=== PATIENT | female | born 1945 | race Caucasian/White ===

== ENCOUNTER 2018-03-20 08:25 | Outpatient (RCR) | payer OTHER, SELFPAY ==
--- NOTE | 2018-03-20 12:54 | PT.OIE ---
Current Diagnoses Other enthesopathies, not elsewhere classified (03/20/18) Provider Visit Care Team Role Provider Type LEIF Prajapati Family Provider Non-Staff Primary Care Provider Specialty: Medical Address: [address] [place] [address], [id number] Email: Lenard Bernal Attending Provider Non-Staff Specialty: Medical Address: [address] [place] [address], [id number] Email: Physical Therapy Initial Evaluation PT-OP-A Visit Information Start: 03/20/18 12:34 Freq: Status: Active Protocol: Document 03/20/18 09:00 DCW (Rec: 03/20/18 12:54 [facility] [id number]) Out-Patient Physical Therapy Visit Information Visit Information Visit Type Initial Evaluation Visit Start Time 09:00 Visit Stop Time 09:30 Total Visit Minutes 30 Visit Number 1 Number of HEARING IMPAIRED TEACHER Visits 0 Evaluation Information Evaluation Date 03/20/18 PT-OP-B Current Condition Start: 03/20/18 12:34 Freq: Status: Active Protocol: Document 03/20/18 09:00 DCW (Rec: 03/20/18 12:54 [facility] [id number]) Current Condition History of Current Condition Onset Date s/p one year Current Complaints Medial Elbow pain History of Current Condition Pt is a 72 year old female presenting with a one year history of medial right elbow pain. Pt reports she had been experiencing 9-10/10 pain right at her medial epicondyle , really with any use of her right arm, including scrubbing pans or lifting objects. Pt now notes, however, that she has been noticing improvement over the past three week, to the point where is often has no pain, and even things that used to give her a 10/10 pain are now at worst a 4/10. Today , pt has no real complaints. Prior Functional Status Baseline Function- ADL's Independent Baseline Function- Mobility Independent Current Functional Impairments (Reported) Functional Limitations- Recreation/ Was limited due to pain, but Hobbies currently she is able to work through it when her elbow hurts when scrubbing pans, lifting objects, or gardening. PT-OP-C Subjective Start: 03/20/18 12:34 Freq: Status: Active Protocol: Document 03/20/18 09:00 DCW (Rec: 03/20/18 12:54 [facility] [id number]) Patient Questionnaires Quick Dash- Upper Extremity Quick Dash UE Score 4.55 Quick Dash UE Impairment 1 to 19% Impaired (Score 1-19) OP-PT Pain Assessment Pain Assessment Grid Paper Pain Assessment Grid Completed Yes Location Right Elbow Intensity 2 Scale Used Numeric (1 - 10) Description Aching Frequency Occasional Pain Aggravating Factors ADL's Lifting PT-OP-F Manual Assessment Start: 03/20/18 12:34 Freq: Status: Active Protocol: Document 03/20/18 09:00 DCW (Rec: 03/20/18 12:54 DCW [id number]) Manual Assessments Soft Tissue Assessment Soft Tissue Mobility Assessment Mild complaint of tenderness with palpation, 1/5, at the origin of the right common flexor tendon PT-OP-K Range of Motion Start: 03/20/18 12:34 Freq: Status: Active Protocol: Document 03/20/18 09:00 DCW (Rec: 03/20/18 12:54 [facility] [id number]) Elbow/Forearm Range of Motion Elbow/Forearm Measured in Degrees Right Active Elbow/Forearm ROM WFL Yes ROM Testing Position Sitting PT-OP-M Strength Start: 03/20/18 12:34 Freq: Status: Active Protocol: Document 03/20/18 09:00 DCW (Rec: 03/20/18 12:54 DC [id number]) Elbow/Forearm Strength Elbow and Forearm Manual Muscle Testing Right Flexion (C6) 5 Normal Extension (C7) 5 Normal Pronation 5 Normal Supination 5 Normal Wrist Strength Wrist Manual Muscle Testing Right Flexion (C7) 5 Normal Extension (C6) 5 Normal Ulnar Deviation 5 Normal Radial Deviation 5 Normal PT-OP-Q Treatments Start: 03/20/18 12:34 Freq: Status: Active Protocol: Document 03/20/18 09:00 DCW (Rec: 03/20/18 12:54 DCW [id number]) Therapeutic Exercises Sitting Exercises 2 Sitting Exercise Name Forearm Pronation/Supination Side right Equipment Used Hammer 1 Sitting Exercise Name 4-way wrist flexion Side right Resistance Lv 2 Equipment Used T-band Reps/Minutes 3 PT-OP-T Assessment and Plan Start: 03/20/18 12:34 Freq: Status: Active Protocol: Document 03/20/18 09:00 HALIE (Rec: 03/20/18 12:54 DCW [id number]) Physical Therapy Assessment Rehab Potential Rehabilitation Potential Excellent Evaluation Complexity Number of Personal Factors/Comorbidities 0 Number of Body Systems Impaired 1-2 Clinical Presentation at Evaluation Stable Impairments Impairments Pain Goals Two Impairment Activity Limitation Short Term Goal (STG) Pt to report ability to scrub [place] with no increased pain STG Duration 3 weeks One Impairment Pain Short Term Goal (STG) Pt to report 0/10 pain at right medial elbow with all activities STG Duration 3 weeks Assessment Summary Assessment Pt presents with signs and symptoms of right medial epicondylitis, however she currently exhibits few symptoms, and those that she does have are very mild. If her symptoms persist, she may benefit from forearm and wrist strengthening, STM to the common flexor tendon, Taping, Ultrasound, and Iontophoresis with Dexamethasone. At this time, however, pt may not require any further therapeutic intervention. Discussed plan with patient, and she agrees that if she continues to have no pain or increased symptoms over the next week, she will cancel her next appointment, and if, after two weeks, she still have no worsening, she will call and request discharge. Physical Therapy Plan Frequency and Duration Frequency of Treatment 1x/Week Duration of Treatment 6 weeks Plan of Care Start Date 03/20/18 Plan of Care End Date 04/30/18 Therapeutic Interventions Therapeutic Interventions Home Exercise Program Joint Mobilizations Manual Therapy Soft Tissue Mobilization Therapeutic Exercises Modalities Cold Pack/Ice Massage Electric Stimulation Hot Packs Iontophoresis Ultrasound Other Therapeutic Interventions Dexamethasone for Ionto Next Visit Focus/Plan Next Visit Plan Cross friction massage of Common Flexor tendon, Iontophoresis, Ultrasound, strengthening, flexibility, and kinesio-taping. Provider Signature Date
--- NOTE | 2018-03-20 12:55 | PT.OPPOC ---
Current Diagnoses Other enthesopathies, not elsewhere classified (03/20/18) Provider Visit Care Team Role Provider Type LEIF Prajapati Family Provider Non-Staff Primary Care Provider Specialty: Medical Address: [address] [place] [address], [id number] Email: Lenard Bernal Attending Provider Non-Staff Specialty: Medical Address: [address] [place] [address], [id number] Email: Plan Of Care PT-OP-T Assessment and Plan Start: 03/20/18 12:34 Freq: Status: Active Protocol: Document 03/20/18 09:00 DCW (Rec: 03/20/18 12:54 DCW [id number]) Physical Therapy Assessment Rehab Potential Rehabilitation Potential Excellent Evaluation Complexity Number of Personal Factors/Comorbidities 0 Number of Body Systems Impaired 1-2 Clinical Presentation at Evaluation Stable Impairments Impairments Pain Goals Two Impairment Activity Limitation Short Term Goal (STG) Pt to report ability to scrub [place] with no increased pain STG Duration 3 weeks One Impairment Pain Short Term Goal (STG) Pt to report 0/10 pain at right medial elbow with all activities STG Duration 3 weeks Assessment Summary Assessment Pt presents with signs and symptoms of right medial epicondylitis, however she currently exhibits few symptoms, and those that she does have are very mild. If her symptoms persist, she may benefit from forearm and wrist strengthening, STM to the common flexor tendon, Taping, Ultrasound, and Iontophoresis with Dexamethasone. At this time, however, pt may not require any further therapeutic intervention. Discussed plan with patient, and she agrees that if she continues to have no pain or increased symptoms over the next week, she will cancel her next appointment, and if, after two weeks, she still have no worsening, she will call and request discharge. Physical Therapy Plan Frequency and Duration Frequency of Treatment 1x/Week Duration of Treatment 6 weeks Plan of Care Start Date 03/20/18 Plan of Care End Date 04/30/18 Therapeutic Interventions Therapeutic Interventions Home Exercise Program Joint Mobilizations Manual Therapy Soft Tissue Mobilization Therapeutic Exercises Modalities Cold Pack/Ice Massage Electric Stimulation Hot Packs Iontophoresis Ultrasound Other Therapeutic Interventions Dexamethasone for Ionto Next Visit Focus/Plan Next Visit Plan Cross friction massage of Common Flexor tendon, Iontophoresis, Ultrasound, strengthening, flexibility, and kinesio-taping. Plan of Care Dates Plan of Care Start Date 03/20/18 Plan of Care End Date 04/30/18 Please Sign and Return: I have reviewed this Plan of Care and certify that the skilled therapy services above are required to meet the patient???s needs. Physician Signature Date Printed Name and Credentials
--- NOTE | 2018-03-31 11:03 | PT.OPDS ---
Current Diagnoses Other enthesopathies, not elsewhere classified (03/20/18) Provider Visit Care Team Role Provider Type LEIF Prajapati Family Provider Non-Staff Primary Care Provider Specialty: Medical Address: [address] [place] [address], [id number] Email: Lenard Bernal Attending Provider Non-Staff Specialty: Medical Address: [address] [place] [address], [id number] Email: Discharge Summary PT-OP-B Current Condition Start: 03/20/18 12:34 Freq: Status: Active Protocol: Document 03/20/18 09:00 DCW (Rec: 03/20/18 12:54 DCW [id number]) Current Condition History of Current Condition Onset Date s/p one year Current Complaints Medial Elbow pain History of Current Condition Pt is a 72 year old female presenting with a one year history of medial right elbow pain. Pt reports she had been experiencing 9-10/10 pain right at her medial epicondyle, really with any use of her right arm, including scrubbing pans or lifting objects. Pt now notes, however, that she has been noticing improvement over the past three week, to the point where is often has no pain, and even things that used to give her a 10/10 pain are now at worst a 4/10. Today, pt has no real complaints. Prior Functional Status Baseline Function- ADL's Independent Baseline Function- Mobility Independent Current Functional Impairments (Reported) Functional Limitations- Recreation/ Was limited due to pain, but Hobbies currently she is able to work through it when her elbow hurts when scrubbing pans, lifting objects, or gardening. PT-OP-C Subjective Start: 03/20/18 12:34 Freq: Status: Active Protocol: Document 03/31/18 10:57 DCW (Rec: 03/31/18 11:03 DCW [id number]) OP-PT Subjective Patient Comments Patient Comments Pt phoned the clinic today to report she was doing better, will continue with her HEP, and to please cancel all remaining appointments. PT-OP-F Manual Assessment Start: 03/20/18 12:34 Freq: Status: Active Protocol: Document 03/20/18 09:00 DCFarhan (Rec: 03/20/18 12:54 [facility] [id number]) Manual Assessments Soft Tissue Assessment Soft Tissue Mobility Assessment Mild complaint of tenderness with palpation, /, at the origin of the right common flexor tendon PT-OP-T Assessment and Plan Start: 03/20/18 12:34 Freq: Status: Active Protocol: Document 03/31/18 10:57 DCW (Rec: 03/31/18 11:03 SCW [id number]) Physical Therapy Assessment Progress Towards Goals Progress Comments Per patient phone call, all goals are met, she has not been experiencing any symptoms. Physical Therapy Plan Discharge Physical Therapy Discharge Reasons Patient Request Discharge Comments Discharge from skilled therapy, per patient's phone call. Please Sign and Return: I have reviewed this Plan of Care and certify that the skilled therapy services above are required to meet the patient???s needs. Physician Signature Date Printed Name and Credentials Clinical Instructor Signature Printed Name and Credentials
== END 2018-04-09 16:41 ==
LOC: PHYS 08:25
PROVIDERS: Family Provider Nurse Practitioner Family; PCP Nurse Practitioner Family; Visit Provider Denturist
DX: M77.8 Other enthesopathies, not elsewhere classified (principal)
CPT/HCPCS: 97161

== ENCOUNTER → 2019-04-01 08:24 | Outpatient (CLI) | payer OTHER, SELFPAY ==
--- NOTE | 2019-04-01 | DI.CT.S_ITS ---
PROCEDURE: CT UE LT WO CON INDICATIONS: MASS IN LEFT BICEP TECHNIQUE: Noncontrast 3 mm axial sections acquired of the left humerus, with coronal and sagittal reformats. COMPARISON: None. FINDINGS: Image quality: Excellent. Bones: No fracture or focal osseous destruction. There is mild left glenohumeral and AC joint degeneration. Soft tissues: In the area of palpable abnormality marked by the fiducial marker on the skin surface, there is underlying possible lipoma with minimal encapsulated appearance measuring 1.1 x 1.5 cm on axial image 155 series 3 this measures approximately 2 cm the cephalocaudad dimension on sagittal image 47 series 5. Elsewhere, no discrete mass lesion is seen. Normal appearance of the muscles and subcutaneous fat. Surgical clips present in the left breast. No axillary lymphadenopathy identified. IMPRESSION: Possible minimally encapsulated lipoma in the region of the palpable abnormality. Recommend clinical followup and management. If subsequent surveillance imaging is deemed required based on level of clinical suspicion, consider followup with contrast-enhanced MRI. Dictated by: J Luis Rabago M.D. on 04/01/2019 at 8:44 Approved by: J Luis Rabago M.D. on 04/01/2019 at 8:50
== END ==
PROVIDERS: PCP Nurse Practitioner Family; Visit Provider Nurse Practitioner Family
DX: R22.32 Localized swelling, mass and lump, left upper limb (principal)
CPT/HCPCS: 73200

== ENCOUNTER → 2021-02-26 14:29 | Outpatient (CLI) | payer MEDICARE, SELFPAY | PROVIDERS: PCP Nurse Practitioner Family; Referring Provider Nurse Practitioner Family; Visit Provider Nurse Practitioner Family | DX: M85.851 Other specified disorders of bone density and structure, right thigh (principal); Z78.0 Asymptomatic menopausal state; Z85.3 Personal history of malignant neoplasm of breast | CPT/HCPCS: 77080 ==

== ENCOUNTER 2024-09-23 05:57 | Day surgery (SDC) | payer MEDICARE, SELFPAY ==
[2024-09-20 13:49] VITALS: BMI 25.0
[2024-09-23] VITALS (14 sets, daily range): BP systolic 77–156; BP diastolic 48–91; PULSE 45–92; RESP 12–16; TEMP 36.1–36.9; O2SAT 4–99; BMI 25.0
--- NOTE | 2024-09-23 | DI.RAD.S_ITS ---
PROCEDURE: XR PELVIS 1-2V INDICATIONS: INTEROP TECHNIQUE: Fluoroscopic guidance utilized for a left total hip arthroplasty COMPARISON: None. FINDINGS: Fluoroscopic images submitted for a left total hip arthroplasty. Please see operative note for further discussion. IMPRESSION: Fluoroscopic guidance. Dictated by: Job Antoine M.D. on 09/23/2024 at 11:26 Approved by: Job Antoine M.D. on 09/23/2024 at 11:26
--- NOTE | 2024-09-23 06:38 | DI.RAD.S_ITS ---
PROCEDURE: XR HIP W PEL IF DONE LT 2V INDICATIONS: DELMI TECHNIQUE: 2 view(s) of the hip acquired. COMPARISON: [facility], [place], XR PELVIS 1-2V, 09/23/2024, 9:09. FINDINGS: Bones: Patient is status post left hip arthroplasty, with hardware components in expected positions. The hip joint appears congruent. The visualized bony structures appear intact. Soft tissues: Overlying postoperative changes are noted. No suspicious soft tissue densities. IMPRESSION: Expected post-operative appearance of a hip arthroplasty. Dictated by: Keagan Bradford M.D. on 09/23/2024 at 14:32 Approved by: Keagan Bradford M.D. on 09/23/2024 at 14:34
[2024-09-23] MEDS: VANCOMYCIN 1,000 MG/200 ML PIGGYBACK 200 MG IV (07:06)
[2024-09-23] MEDS: ACETAMINOPHEN 325 MG TABLET 975 MG PO (07:06)
[2024-09-23] MEDS: CELECOXIB 200 MG CAPSULE PO (07:06)
[2024-09-23] MEDS: LACTATED RINGERS 1,000 ML 42 ML IV (07:07)
--- NOTE | 2024-09-23 07:27 | PM.PREOP ---
Pre-operative Note Interval Note History & Physical reviewed/Exam performed by Physician: Yes Changes to H&P: No
--- NOTE | 2024-09-23 07:28 | PM.OP.1 ---
Operative Date/Time/Diagnoses Date of procedure: 09/23/24 Time of procedure: 08:00 Pre-op diagnosis: left hip OA Post-op diagnosis: same Procedure & Clinicians Procedure: Left total hip arthroplasty anterior approach Same procedure as scheduled: Yes Indications: The patient has had progressively worsening left hip pain with radiographic changes consistent with arthritis. Non-operative management has failed and the patient has requested total hip replacement. The risks, benefits and alternatives to surgery were discussed with the patient prior to proceeding. Risks discussed included, but were not limited to, failure to relieve pain, leg length discrepancy, dislocation, stiffness, infection, nerve damage, deep venous thrombosis, pulmonary embolism, stroke, coma, heart attack, permanent paralysis and , as well as the potential need for eventual revision of the prosthetic. Surgeon: Annetta Clark Education Officer: Raúl Cook Anesthesia Type: General and Spinal Operative Notes Findings: Severe left hip OA , adequate stability, adequate bone Closure Type: primary Specimen(s): none sent Prosthetic devices, grafts, tissues, transplants, or devices: [employer] R3 52, neutral poly liner,one 6.5 mm screw, polar stem size 1 Estimated Blood Loss (mL): 250 Blood products transfused: none Procedure in detail: The patient was brought to the operating room. Patient was carefully positioned in the supine position. Time-out was performed and antibiotics were given. Anesthesia was induced. She was positioned in the on the table in order to allow hyperextension of the hip. The left lower extremity was prepped and draped in a standard sterile fashion. An anterior left hip incision was made 1 fingerbreadth lateral to the anterior superior iliac spine and extended distally towards the greater trochanter. Dissection was carried out through skin and subcutaneous tissues. Superficial hemostasis was achieved. The fascia over the tensor fascia donna was defined and incised with a knife. Two Allis clamps were used to grasp the fascia. Tensor fascia donna was retracted laterally. A gelpi retractor was placed. Dissection was carried out down along the neck. The circumflex vessels were carefully identified and cauterized with the Aqua Mantis. There was good visualization of the femoral neck. A Cobra was placed superior to the neck and the gluteus fibers were carefully stripped from that superior aspect of the capsule. A 2nd retractor was placed along the inferior aspect of the neck. The rectus insertion along the capsule was partially released. A 3rd retractor that was then gently placed over the rim of the acetabulum under the rectus. Capsule was carefully incised and released from the intertrochanteric line circumferentially superior to the mid sagittal line and inferiorly to the mid sagittal line until the lesser trochanter was palpable. A tag stitch was placed both in the superior and inferior limb of the capsular insertion. Along the acetabulum capsule was also released up to the mid sagittal 12:00 position. A portion of the labrum was resected. A saw was used to perform an osteotomy at the level of the intertrochanteric line and the junction of the superior femoral neck leaving approximately 1 finger breath of residual inferior neck above the lesser trochanter. A PA was used during the procedure and was essential for intraoperative retraction and safe implantation of the components. A 2nd cut was made along the femoral neck at the base of the head and a napkin ring of neck was removed. Corkscrew was placed in the femoral head and the head was removed without difficulty. Retractors were then repositioned around the acetabulum. Residual labrum was resected and additional osteophytes were removed. A reamer that was 4 mm below the templated size was placed by hand in the acetabulum and it was reamed to centralize the acetabulum. It was then reamed up to 2 under the templated size and fluoroscopy was brought in to confirm the position of the reaming and depth of reaming. I reamed 1 under the anticipated size. A trial cup was placed and noted that it was appropriately sized and fluoroscopy confirmed position and depth. The component was open and inserted without difficulty fluoroscopic imaging was used to confirm that the cup had been adequately seated and was well positioned. Neutral poly liner was placed. The cup was tested and noted to be stable. Attention was then directed to the femur. The femur was gently hyperextended additional capsular release was performed as needed in order to allow adequate visualization of the proximal femur with elevation of the femur. Patient was placed in a hyperextended slightly adducted position with maximum external rotation. Box osteotome was used to check for any residual neck as well as sclerotic bone along the trochanter. [place] pepper was placed in the femur. Additional broaching was performed. Canal finder was used to determine the alignment of the canal and position. Size 1 broach was placed. The canal was then appropriately broached up to the templated size as long as there was adequate stability of the broach and serial advancement of the broach without excessive impingement. Specific attention was directed at avoiding varus attempting to direct the distal aspect of the broach more anteriorly and avoiding excessive anteversion. Trial reduction showed acceptable range of motion, good stability, no posterior impingement, mandaeism of leg length and appropriate lateral shuck. I also hyperflexed the hip and checked that there was no impingement anteriorly and there was good stability with flexion, adduction and internal rotation. Marcaine and Exparel were injected. The stem was placed without difficulty. Repeat trial reduction and x-ray showed acceptable overall position, length, and no evidence of the femoral fracture. Final head was placed. Wound was meticulously irrigated with normal saline. The hip was reduced and additional Exparel and Marcaine were injected. The capsule was closed with interrupted nonabsorbable sutures. The fascia of the tensor was closed with interrupted and running Vicryl. No drain was placed. Any tensor fascia donna muscle that appeared to be contused or injured which was a minimal amount was carefully resected. Capsule around the tensor was injected with Exparel and Marcaine. The skin was closed with barbed stitches for the subcutaneous tissue and skin. We also used surgical glue. The wound was dressed sterilely. Brief Betadine soak was also used and was meticulously irrigated with normal saline. Patient was transferred to recovery room in satisfactory condition. Complications: none Post-operative Condition: stable Disposition: Acute Care Plan for aftercare: The patient will be maintained on a standard total hip replacement protocol with weight bearing as tolerated and anterior hip precautions. The patient will receive Aspirin and sequential compression devices for DVT prophylaxis. The patient will be discharged home when safe for the home environment.
[2024-09-23] MEDS: CEFAZOLIN 2 GM/100 ML PREMIX 100 ML IV ×3 (07:56→23:40)
--- NOTE | 2024-09-23 08:39 | SUR.OPER ---
Patient supine on padded [place] table, one arm on padded arm board at <90, other arm padded and secured with tape across patient's chest, both legs secured in padded traction boots and positioned per surgeon, padded post at patient's groin, pressure points checked and padded.
[2024-09-23] MEDS: TRANEXAMIC ACID 1,000 MG VIAL 1000 MG INJ ×2 (08:55→10:00)
[2024-09-23] MEDS: BUPIVACAINE 0.25% (PF) 60 ML, EPINEPHrine 0.3 MG INJ (08:55)
[2024-09-23] MEDS: BUPIVACAINE LIPOSOME 266 MG/20 ML VIAL INJ (08:56)
[2024-09-23] MEDS: LACTATED RINGERS 1,000 ML 999 ML IV (10:56)
[2024-09-23] MEDS: LACTATED RINGERS 1,000 ML 100 ML IV (11:28)
--- NOTE | 2024-09-23 11:33 | PT-IP ANOTE ---
PT consult received. PT reviews chart and checks on pt. No labs yet available. Nsg reports that pt was hypotensive after surgery and current BP in supine is 104/66, 97 after bolus. Nsg reports need to hold PT at this time. Pt to get a second bolus. PT obtains PLOF. Con't PT efforts. Pt lives on [address] so anticipate d/c no sooner than next date.
--- NOTE | 2024-09-23 14:35 | OT.IP.EVAL ---
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 Esophageal reflux HLD (hyperlipidemia) Lipoma of arm (2018) Lipoma of other specified sites (1997) Osteopenia Surgical History (Last Updated 09/20/24 @ 14:28 by Rose Marie Magaña, RN) History of breast biopsy History of carpal tunnel release (2015) History of hysterectomy History of tonsillectomy Occupational Therapy Inpatient Evaluation/Re-Eval M1 PT/OT-IP Prior Functional Status Start: 09/23/24 11:25 Freq: NEEDED Status: Active Protocol: Document 09/23/24 16:04 CGR (Rec: 09/23/24 16:21 CGR [id number]) Medical Review Prior Functional Status Medical History Reviewed Yes Diet/Fluid Consistency Regular Communication WNLs Mobility and Gait I Activities of Daily Living and IADL's I, lives with in their home on [address]. 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 Social History Household Members spouse Living Arrangements House Number of Floors (Floors) Two Floors Number of Stairs To Enter/Railing? No stairs to enter. Main floor living. Home Environment Standard Height Toilet,Walk in Shower,Built-In Shower Seat Home Equipment Front Wheel Walker,Straight Cane,Hand Held Shower Additional Social History Comment Toilet riser available M2 OT-IP Current Condition Start: 09/23/24 16:03 Freq: Status: Active Protocol: Document 09/23/24 16:04 CGR (Rec: 09/23/24 16:21 CGR [id number]) Occupational Therapy Current Condition Current Condition Evaluation Date 09/23/24 Treatment Diagnosis L DELMI anterior. Diagnosis Onset Date 09/23/24 Post Operative Precautions Anterior Hip Precautions No Hip Extension,No Hip External Rotation M3 OT- IP Subjective and Pain Start: 09/23/24 16:03 Freq: Status: Active Protocol: Document 09/23/24 16:04 CGR (Rec: 09/23/24 16:21 CGR [id number]) OT- Subjective Occupational Therapy Visit Type Type Initial Evaluation Visit Start Time 14:06 Visit Stop Time 14:35 Notes Pt with low BP this AM and per nursing, is waiting for straight cath. OT Pain Assessment Pain When Pain Assessed At Rest Pain Present Pain Present Denied Pain M4 OT- IP ADL's Start: 09/23/24 16:03 Freq: Status: Active Protocol: Document 09/23/24 16:04 CGR (Rec: 09/23/24 16:21 CGR [id number]) OT [id number] Comments OT Self-Feeding Comments not meal time OT ADL-Grooming Comments OT Grooming Comments not performed OT ADL-Oral Care Comments Oral Care Comments not performed OT ADL-Dressing General Eval Lower Body Dressing Ability Total Assistance Areas Needing Assistance Socks OT ADL-Toileting Comments OT Toileting Comments Per nursing, pt has not urinated and needs straight cath. When OT went to get patient up, her bedding was soiled. OT ADL-Bathing Comments OT Bathing Comments not performed M5 OT- IP IADL's Start: 09/23/24 16:03 Freq: Status: Active Protocol: Document 09/23/24 16:04 CGR (Rec: 09/23/24 16:21 CGR [id number]) OT-Instrumental Activities of Daily Living Deficits IADL Deficits Identified No Deficits Home Safety Awareness Awareness of Need for Assistance at Home Good Awareness Ability to Problem Solve Emergency Able to Problem Solve Situations Medication Management Medication Management No Deficits Identified Money Management Money Management No Deficits Identified Meal Preparation Meal Preparation No Deficits Identified Mortgage Funder Mortgage Funder No Deficits Identified Driving Driving Comments 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 OT- IP Functional Cognition Start: 09/23/24 16:03 Freq: Status: Active Protocol: Document 09/23/24 16:04 CGR (Rec: 09/23/24 16:21 CGR [id number]) Cognitive Factors Limiting Selfcare Function Cognitive Ability Level of Alertness Alert Patient Orientation Name,Age,Birthday,Month,Date, Year,Day of Week,Place, Situation Attention Span Ability Capable of Focused Attention, Capable of Sustained Attention OT- Vision and Hearing OT- Hearing Assessment OT- Hearing Assessment Hearing Impaired,Use of Hearing Aids OT- Vision Assessment Visual Acuity Glasses For Reading Visual Attentiveness WFL Occular Pursuits WFL Visual Convergence WFL M7 OT- IP Mobility and Balance Start: 09/23/24 16:03 Freq: Status: Active Protocol: Document 09/23/24 16:04 CGR (Rec: 09/23/24 16:21 CGR [id number]) OT- Bed Mobility Assessment Rolling Type of Rolling Roll to Right,Roll to Left Level of Assistance Standby Assistance Supine to Sit Supine to Sit Assist Minimal Assistance Sit to Supine Sit to Supine Assist Moderate Assistance Scooting Scooting to Edge of Bed Standby Assistance OT-Transfer Assessment Sit to and From Stand Sit to and from Stand Minimal Assistance,Moderate Assistance,1 Person Assistance Comments Mobility Comments Pt performed supine to sit with min a for bringing over the left leg. Pt then sat EOB for OT assessment but with a decline to her BP. Pt then stood but with L knee buckling and returned to sitting saying that she was feeling more dizzy. Supine: 124/72 Sit: 110/58 Sit after standin/56 Pt returned to supine d/t dropping BP then bedding changed while pt was in bed. OT- Gait Assessment Comments Gait Ability Comments not performed OT- Balance Assessment Sitting Balance and Reactions Static Sitting Balance Ability Good Dynamic Sitting Balance Ability Good M8 OT- IP Objective Assessments Start: 09/23/24 16:03 Freq: Status: Active Protocol: Document 09/23/24 16:04 CGR (Rec: 09/23/24 16:21 CGR [id number]) OT Gross Range of Motion Upper Extremity Range of Motion Assessment Within Functional Limits OT Strength Upper Extremity Strength Assessment Within Functional Limits Comments Strength Comments grossly 5/5 OT- Coordination Assessment Upper Extremity Finger to Nose Test Within Functional Limits Finger Tapping Test Within Functional Limits OT-Muscle Tone Assessment Muscle Tone WNL Yes OT Sensation Assessment Edema Edema Absent M9 OT- IP Assessment and Plan Start: 09/23/24 16:03 Freq: Status: Active Protocol: Document 09/23/24 16:04 CGR (Rec: 09/23/24 16:21 CGR [id number]) OT Summary Assessment and Plan Potential Rehabilitation Potential Excellent Analytic Complexity at Evaluation Moderate Summary OT Impairments Balance,Functional Mobility, Grooming,Dressing,Toileting, Bathing,Toilet Transfers, Shower Transfers,Activity Tolerance Progress Towards Goals Progressing Toward Goals Assessment Summary Pt presents as a moderate complexity evaluation s/p admit for L DELMI anterior approach. Pt is doing well overall but is orthostatic with mobility. Pt will benefit from continued therapy services while hospitalized but is likely to progress to discharge home with family support. Goals Grooming Goal Independent Dressing Goal Independent Toileting Goal Independent Bathing Goal Independent Toilet Transfer Goal Independent Shower Transfer Goal Independent Days to Meet Goals 3 Frequency of Treatment Other frequency 5x a week Treatment Plan OT Treatment Plan ADL Training,Functional Mobility,Patient/Family Education,Discharge Planning Other Treatment Recommendations and Next LB dressing, bathing, ADLs at Treatment Focus sink Discharge Recommendations OT Discharge Recommendations Home with Assistance Home Equipment Needs LB dressing equipment. Transportation Needs at Discharge Private Vehicle
--- NOTE | 2024-09-23 15:12 | PC.NURSE ---
Bladder scan done, showed 498cc, straight cath done as per order. 350cc urine return, patient tolerated procedure well.
--- NOTE | 2024-09-23 15:34 | PT-IP ANOTE ---
PT checks pt and communicates with OT. OT reports that pt is orthostatic this p.m. Will initiate PT eval next date.
[2024-09-23] MEDS: DOCUSATE 100 MG CAPSULE PO (21:14)
[2024-09-23] MEDS: FAMOTIDINE 20 MG TABLET PO (21:14)
[2024-09-23] MEDS: ASPIRIN EC 81 MG TABLET PO (21:14)
[2024-09-24 06:00] VITALS: BP 138/81; PULSE 70; RESP 14; TEMP 37.2; O2SAT 95
[2024-09-24 06:13] LABS: Hematocrit 36.2 % (36-46); Hemoglobin 12.5 g/dL (12.0-16.0)
--- NOTE | 2024-09-24 07:51 | PM.DS.1 ---
History of Present Illness History of Present Illness Date Patient Seen: 09/24/24 Time Patient Seen: 07:51 Chief complaint: Left DELMI Anterior Narrative: Operative Date/Time/Diagnoses Date of procedure: 09/23/24 Time of procedure: 08:00 Pre-op diagnosis: left hip OA Post-op diagnosis: same Procedure & Clinicians Procedure: Left total hip arthroplasty anterior approach Same procedure as scheduled: Yes Indications: The patient has had progressively worsening left hip pain with radiographic changes consistent with arthritis. Non-operative management has failed and the patient has requested total hip replacement. The risks, benefits and alternatives to surgery were discussed with the patient prior to proceeding. Risks discussed included, but were not limited to, failure to relieve pain, leg length discrepancy, dislocation, stiffness, infection, nerve damage, deep venous thrombosis, pulmonary embolism, stroke, coma, heart attack, permanent paralysis and , as well as the potential need for eventual revision of the prosthetic. Surgeon: Annetta Clark [facility] Technician: Raúl Cook Anesthesia Type: General and Spinal Operative Notes Findings: Severe left hip OA , adequate stability, adequate bone Closure Type: primary Specimen(s): none sent Prosthetic devices, grafts, tissues, transplants, or devices: [employer] R3 52, neutral poly liner,one 6.5 mm screw, polar stem size 1 Estimated Blood Loss (mL): 250 Blood products transfused: none Discharge Providers Provider Discharge Date: 09/24/24 Primary care physician: Loren Dougherty MD Consults: 09/23/24 06:38 Consult to Anesthesiology Routine Comment: Consulting Provider: Anesthesiologist Reason for consultation: Regional block for post operative pain control Has provider been notified: No 09/23/24 11:19 Consult to Discharge Planning Routine Comment: Consult to Occupational Therapy Evaluate & Treat Comment: Physician Instructions: Evaluate and treat Consult to Physical Therapy Evaluate & Treat Comment: Physician Instructions: post op DELMI protocol Discharge provider: Jeniffer Wright PA-C Summary Hospital Course Discharge Diagnosis: Left hip osteoarthritis, s/p left total hip arthroplasty Hospital Course: Ms Ruelas's hospital course was unremarkable. On the morning of POD# 1, she was feeling well and wanted to go home; she said her ride was coming at 0800. She was eating and voiding without difficulty and her pain was well-controlled without opioid pain medication. She had not yet worked w/ PT d/t episodes of orthostatic hypotension, but she had been OOB multiple times. Exam Vital Signs (past 8 hours): - 09/24/24 06:00 Temperature 98.9 F Pulse Rate 70 Respiratory Rate 14 Blood Pressure 138/81 Pulse Oximetry 95 Oxygen Flow Rate 0 Oxygen Delivery Method Room Air Oxygen Flow Rate 0 Narrative Exam Narrative: 5/5 strength in hip flexors, quadriceps, hamstrings, PF, DF, EHL on left. Sensation to light touch intact throughout LLE, calf soft and compressible. Aquacel dressing to left hip has one small spot of blood, otherwise CDI. 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 Will send tramadol in the event she has more significant pain. Discharge Plan Discharge Plan Patient Disposition: Home Discharge orders & Medications Discharge Orders: Discharge (Order); Ordered 09/24/24 Ordered By: Jeniffer Wright Prescriptions: New acetaminophen 325 mg Tablet 650 mg PO Q6H PRN (Reason: Fever/Mild Pain (1-3)) Qty: 90 0RF aspirin 81 mg Tablet,Delayed Release (Dr/Ec) 81 mg PO BID Qty: 90 0RF ibuprofen 400 mg Tablet 400 mg PO Q4H PRN (Reason: Pain, Mild (1-3)) Qty: 60 0RF ondansetron 4 mg Tablet,Disintegrating 4 mg PO Q4HR PRN (Reason: Nausea) Qty: 20 0RF polyethylene glycol 3350 17 gram Powder In Packet 17 g PO DAILY PRN (Reason: Constipation) Qty: 30 0RF tramadol 50 mg tablet 50 mg PO Q6H PRN (Reason: pain, severe) Qty: 10 0RF Continued cyanocobalamin (vitamin B-12) [Vitamin B-12] 250 MCG tablet 250 mcg PO Q DAY Qty: 0 famotidine 20 mg tablet 20 mg PO BID multivitamin Tablet 1 tab PO DAILY fenofibrate 54 mg tablet 54 mg PO DAILY Follow up/Referrals: Loren Dougherty MD [Primary Care Provider] - Annetta Clark MD [Physician] - As previously scheduled Diet/Activity/Treatments Diet: Diet as Tolerated Activity: Weightbearing as tolerated. Anterior hip precautions. Cold/Heat Therapy: Ice to hip as needed for pain. Skin/Wound/Dressing Care Report to your healthcare provider any signs of infection, such as:: chills, fever, night sweats, unusual drainage and unusual redness Dressing: May shower. Leave dressing in place until follow up in office. No bathing or otherwise soaking incision. Call the office if the dressing becomes saturated inside. Visit Report/Discharge Packet Instructions: DI for Hip Replacement, DI for Prescription Opioid Use Stand Alone Forms: Patient Portal/API, Surgery Discharge Discharge Data Primary Care Provider: Loren Dougherty Attending Provider: Annetta Clark
[2024-09-24 08:00] VITALS: BP 132/81; PULSE 90; RESP 16; TEMP 36.6; O2SAT 95
[2024-09-24] MEDS: ASPIRIN EC 81 MG TABLET PO (08:27)
[2024-09-24] MEDS: ACETAMINOPHEN 325 MG TABLET 650 MG PO (08:27)
[2024-09-24] MEDS: DOCUSATE 100 MG CAPSULE PO (08:27)
[2024-09-24] MEDS: FENOFIBRATE, MICRONIZED 67 MG CAPSULE PO (08:28)
[2024-09-24] MEDS: IBUPROFEN 400 MG TABLET PO (08:28)
[2024-09-24] MEDS: FAMOTIDINE 20 MG TABLET PO (08:28)
[2024-09-24] MEDS: MULTIVITAMIN 1 TABLET 1 TAB PO (08:29)
[2024-09-24] MEDS: CYANOCOBALAMIN (VITAMIN B-12) 500 MCG TABLET 250 MCG PO (09:54)
--- NOTE | 2024-09-24 09:54 | OT.IP.TRT ---
Current Diagnoses Unilateral primary osteoarthritis, left hip (09/23/24) Presence of unspecified artificial hip joint (09/23/24) Surgery Performed Operation Date: 09/23/24 07:45 Actual Procedures p Total Hip Arthroplasty/Anterior Approach(Left) - Annetta Clark MD Occupational Therapy Treatment Note M2 OT-IP Current Condition Start: 09/23/24 16:03 Freq: Status: Active Protocol: Document 09/23/24 16:04 CGR (Rec: 09/23/24 16:21 CGR [id number]) Occupational Therapy Current Condition Current Condition Evaluation Date 09/23/24 Treatment Diagnosis L DELMI anterior. Diagnosis Onset Date 09/23/24 Post Operative Precautions Anterior Hip Precautions No Hip Extension,No Hip External Rotation M3 OT- IP Subjective and Pain Start: 09/23/24 16:03 Freq: Status: Active Protocol: Document 09/24/24 10:53 CGR (Rec: 09/24/24 11:14 CGR [id number]) OT- Subjective Occupational Therapy Visit Type Type Treatment Note Visit Start Time 09:16 Visit Stop Time 09:54 OT Pain Assessment Pain When Pain Assessed At Rest Pain Present Pain Present Denied Pain M4 OT- IP ADL's Start: 09/23/24 16:03 Freq: Status: Active Protocol: Document 09/24/24 10:53 CGR (Rec: 09/24/24 11:14 CGR [id number]) OT [id number] Comments OT Self-Feeding Comments not meal time OT ADL-Grooming General Evaluation Grooming Ability Standby Assistance Areas Needing Assistance Face Washing Comments OT Grooming Comments standing at sink OT ADL-Oral Care General Eval Oral Care Ability Standby Assistance Areas of Assistance Brushing Teeth,Retrieving/Set- Up of Items Comments Oral Care Comments brushed teeth standing at sink OT ADL-Dressing General Eval Lower Body Dressing Ability Standby Assistance Areas Needing Assistance Underpants/Brief,Pants/Shorts, Socks Assistive Devices Dressing Assistive Devices Casing Flusher,Sock Aid Comments OT Dressing Comments Seated in chair for donning. OT ADL-Toileting General Evaluation Toileting Ability Independent Comments OT Toileting Comments seated on toielt, pt had BM OT ADL-Bathing Comments OT Bathing Comments not performed M5 OT- IP IADL's Start: 09/23/24 16:03 Freq: Status: Active Protocol: Document 09/23/24 16:04 CGR (Rec: 09/23/24 16:21 CGR [id number]) OT-Instrumental Activities of Daily Living Deficits IADL Deficits Identified No Deficits Home Safety Awareness Awareness of Need for Assistance at Home Good Awareness Ability to Problem Solve Emergency Able to Problem Solve Situations Medication Management Medication Management No Deficits Identified Money Management Money Management No Deficits Identified Meal Preparation Meal Preparation No Deficits Identified Salvage Cutter Salvage Cutter No Deficits Identified 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 OT- IP Functional Cognition Start: 09/23/24 16:03 Freq: Status: Active Protocol: Document 09/23/24 16:04 CGR (Rec: 09/23/24 16:21 CGR [id number]) Cognitive Factors Limiting Selfcare Function Cognitive Ability Level of Alertness Alert Patient Orientation Name,Age,Birthday,Month,Date, Year,Day of Week,Place, Situation Attention Span Ability Capable of Focused Attention, Capable of Sustained Attention OT- Vision and Hearing OT- Hearing Assessment OT- Hearing Assessment Hearing Impaired,Use of Hearing Aids OT- Vision Assessment Visual Acuity Glasses For Reading Visual Attentiveness WFL Occular Pursuits WFL Visual Convergence WFL M7 OT- IP Mobility and Balance Start: 09/23/24 16:03 Freq: Status: Active Protocol: Document 09/24/24 10:53 CGR (Rec: 09/24/24 11:14 CGR [id number]) OT-Transfer Assessment Sit to and From Stand Sit to and from Stand Contact Guard Assistance Transfers Transfer Ability Contact Guard Assistance Technique Transfer Destination Chair,Toilet Transfer Technique Stand Step Pivot Devices Transfer Assistive Devices Gait Belt,Front Wheeled Walker Comments Mobility Comments Mobility around the room and bathroom. OT- Gait Assessment Gait Gait Assistance Required: Contact Guard Assist Assistive Devices Assistive Device Gait Belt,Front Wheeled Walker OT- Balance Assessment Sitting Balance and Reactions Static Sitting Balance Ability Good Dynamic Sitting Balance Ability Good M8 OT- IP Objective Assessments Start: 09/23/24 16:03 Freq: Status: Active Protocol: Document 09/23/24 16:04 CGR (Rec: 09/23/24 16:21 CGR [id number]) OT Gross Range of Motion Upper Extremity Range of Motion Assessment Within Functional Limits OT Strength Upper Extremity Strength Assessment Within Functional Limits Comments Strength Comments grossly 5/5 OT- Coordination Assessment Upper Extremity Finger to Nose Test Within Functional Limits Finger Tapping Test Within Functional Limits OT-Muscle Tone Assessment Muscle Tone WNL Yes OT Sensation Assessment Edema Edema Absent M9 OT- IP Assessment and Plan Start: 09/23/24 16:03 Freq: Status: Active Protocol: Document 09/24/24 10:53 CGR (Rec: 09/24/24 11:14 CGR [id number]) OT Summary Assessment and Plan Potential Rehabilitation Potential Excellent Analytic Complexity at Evaluation Moderate Summary OT Impairments Balance,Functional Mobility, Grooming,Dressing,Toileting, Bathing,Toilet Transfers, Shower Transfers,Activity Tolerance Progress Towards Goals Progressing Toward Goals Assessment Summary Pt presents as a moderate complexity evaluation s/p admit for L DELMI anterior approach. Pt's blood pressure was stable today and ambulated around the room and was instructed on LB dressing and home ADL safety. Pt is ready for discharge. Goals Grooming Goal Independent Dressing Goal Independent Toileting Goal Independent Bathing Goal Independent Toilet Transfer Goal Independent Shower Transfer Goal Independent Days to Meet Goals 3 Frequency of Treatment Other frequency 5x a week Treatment Plan OT Treatment Plan ADL Training,Functional Mobility,Patient/Family Education,Discharge Planning Other Treatment Recommendations and Next LB dressing, bathing, ADLs at Treatment Focus sink Discharge Recommendations OT Discharge Recommendations Home with Assistance Home Equipment Needs LB dressing equipment. Transportation Needs at Discharge Private Vehicle
--- NOTE | 2024-09-24 10:00 | PT.IIE ---
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 Esophageal reflux HLD (hyperlipidemia) Lipoma of arm (2018) Lipoma of other specified sites (1997) Osteopenia Physical Therapy Inpatient Evaluation/Re-Eval M1 PT/OT-IP Prior Functional Status Start: 09/23/24 11:25 Freq: NEEDED Status: Active Protocol: Document 09/24/24 10:00 AB (Rec: 09/24/24 11:25 AB [id number]) Medical Review Prior Functional Status Medical History Reviewed Yes Diet/Fluid Consistency Regular Communication able to make needs known Mobility and Gait pt was independent with all mobilities and ambulation without AD Activities of Daily Living and IADL's Per OT note: I, lives with in their home on [address] . 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 Social History Household Members spouse Living Arrangements House Number of Floors (Floors) Two Floors Number of Stairs To Enter/Railing? No stairs to enter; pt will stay on main level Home Environment Standard Height Toilet,Walk in Shower,Built-In Shower Seat Home Equipment Front Wheel Walker,Straight Cane,Raised Toilet Seat Without Armrests,Hand Held Shower Additional Social History Comment pt's son also will be available to assist pt at home M1 PT/OT-IP Prior Functional Status Start: 09/23/24 16:03 Freq: NEEDED Status: Active Protocol: Document 09/24/24 10:00 AB (Rec: 09/24/24 11:25 AB [id number]) Medical Review Prior Functional Status Medical History Reviewed Yes Diet/Fluid Consistency Regular Communication able to make needs known Mobility and Gait pt was independent with all mobilities and ambulation without AD Activities of Daily Living and IADL's Per OT note: I, lives with in their home on [address] . 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 Social History Household Members spouse Living Arrangements House Number of Floors (Floors) Two Floors Number of Stairs To Enter/Railing? No stairs to enter; pt will stay on main level Home Environment Standard Height Toilet,Walk in Shower,Built-In Shower Seat Home Equipment Front Wheel Walker,Straight Cane,Raised Toilet Seat Without Armrests,Hand Held Shower Additional Social History Comment pt's son also will be available to assist pt at home M2 PT-IP Current Condition Start: 09/23/24 11:25 Freq: NEEDED Status: Active Protocol: Document 09/24/24 10:00 AB (Rec: 09/24/24 11:25 AB [id number]) Physical Therapy Current Condition Current Condition Evaluation Date 09/24/24 Treatment Diagnosis s/p L DELMI anterior; difficulty in walking Onset Date 09/23/24 M3 PT-IP Subjective Start: 09/23/24 11:25 Freq: NEEDED Status: Active Protocol: Document 09/24/24 10:00 AB (Rec: 09/24/24 11:25 AB [id number]) Subjective Physical Therapy Visit Type Type Initial Evaluation Visit Start Time 10:00 Visit Stop Time 10:30 Number of BROADCAST CHECKER Visits 0 Physical Therapy Visit Comments Patient Comments agreeable to do PT Therapy Pain Assessment Pain When Pain Assessed During Mobility Pain Present Pain Present Pain Reported Location Left Hip Intensity 2 Scale Used Numeric (0 - 10) Pain Management Techniques Distraction,Modification of Treatment,Re-positioning, Timing of Activity with Medications M4 PT-IP Mobility and Gait Start: 09/23/24 11:25 Freq: NEEDED Status: Active Protocol: Document 09/24/24 10:00 AB (Rec: 09/24/24 11:25 AB [id number]) PT-Bed Mobility Assessment Supine to Sit Supine to Sit Standby Assistance Sit to Supine Sit to Supine Standby Assistance PT-Transfer Assessment Sit to and From Stand Sit to and from Stand Standby Assistance,Contact Guard Assistance,1 Person Assistance,Use of Upper Extremities Equipment Transfer Assistive Device Gait Belt,Front Wheeled Walker Orthotic/Prosthetic Devices or Brace: No Transfers Transfer Destination Bed Transfer Technique ambulated Transfer Ability Level of Assist Standby Assistance,Contact Guard Assistance,1 Person Assistance,Use of Upper Extremities Comments Mobility Comments obtained PLOF from spouse and son. pt sitting on the chair and agreeable to do PT. reviewed anterior hip precautions. pt completed sit to stand CGA and ambulated to EOB using FWW ~ 15 ft SBA to CGA. completed sit<>supine SBA. pt completed sit to stand from EOB CGA and ambulated in the hallway using FWW ~ 75 ft SBA to CGA. pt sat back on chair. caregiver training conducted. educated spouse on use of safety belt and how to assist pt. spouse was able to put safety belt on and assisted pt with ambulation in room SBA to CGA ~ 20 ft. pt sat back on chair. positioned pt on the chair. call light and table placed within reach. informed nurse that pt has completed PT and awaiting dc Gait Assessment Gait Gait Assistance Required: Standby Assistance,Contact Guard Assist Distance (Feet) 75 Able to Maintain Weight Bearing Status Yes During Gait Assistive Devices Assistive Device Gait Belt,Front Wheeled Walker Orthotic/Prosthetic Devices or Brace: No Gait Deviations General Gait Pattern Antalgic,Decreased Feet Clearance Factors Limiting Gait Function Factors Limiting Gait Function Decreased Activity Tolerance, Decreased Strength,Limited Range of Motion,Pain,Poor Balance,Poor Safety Awareness PT-Balance Assessment Sitting Balance and Reactions Static Sitting Balance Ability Normal Dynamic Sitting Balance Ability Good Standing Balance and Reactions Static Standing Balance Ability Good Dynamic Standing Balance Ability Fair Device Used FWW M5 PT-IP Objective Assessments Start: 09/23/24 11:25 Freq: NEEDED Status: Active Protocol: Document 09/24/24 10:00 AB (Rec: 09/24/24 11:25 AB [id number]) Orientation Orientation/Cognition Level of Alertness Alert Orientation Name,Place,Situation Language Function Ability Hard of Hearing Safety Awareness Understands Safety Issues Memory Description No Deficits Noted Gross Range of Motion Lower Extremity ROM Assessment Within Functional Limits Strength Lower Extremity Strength Assessment Left Impaired Hip 3+/5 Knee 4-/5 Coordination Assessment Gross Coordination Gross Coordination WNL Sensation Assessment Sensation Gross Sensation WNL Muscle Tone Muscle Tone WNL Yes M6 PT-IP Treatment Start: 09/23/24 11:25 Freq: NEEDED Status: Active Protocol: Document 09/24/24 10:00 AB (Rec: 09/24/24 11:25 AB [id number]) Physical Therapy Treatment Education Education Provided Precautions,Weight Bearing Status,Safety M7 PT-IP Assessment and Plan Start: 09/23/24 11:25 Freq: NEEDED Status: Active Protocol: Document 09/24/24 10:00 AB (Rec: 09/24/24 11:25 AB [id number]) PT Summary Assessment and Plan Potential Rehabilitation Potential Good Status of Condition at Evaluation Stable Summary Impairments Pain,ROM,Strength,Balance,Bed Mobility,Transfers,Gait, Activity Tolerance Assessment Summary pt is a 79 y/o F s/p L DELMI anterior approach POD 1. pt has L hip anterior precautions and is WBAT. pt requiring SBA to CGA with mobilities using FWW. pt will have her spouse and son to assist her at home. caregiver training conducted and spouse was ablet o assist pt safely. pt may go home when medically stable. Goals Bed Mobility Goal Independent Transfer Goal Independent,Front Wheeled Walker Gait Goal Independent,Front Wheel Walker Gait Distance 200 Days to Meet Goals 3 Frequency of Treatment Frequency Of Treatment Twice a Day Treatment Plan Physical Therapy Treatment Plan Bed Mobility Training,Transfer Training,Gait Training, Therapeutic Exercise,Balance Retraining,Post Op Education, Discharge Planning,Hot or Cold Pack,Neuromuscular Re-ed, Coordination Retraining,Manual Therapy Precautions Anterior Hip Precautions No Hip Extension,No Hip External Rotation Weight Bearing Status Weight Bearing Status Weight Bear as Tolerated Allowed Weight Bearing Amount (enter % LLE WBAT or #) (%) Recommendations To Nursing Amount of Assist Needed Standby Assistance Discharge Recommendations PT Discharge Recommendations Home with Assistance, Outpatient PT Transportation Needs at Discharge Private Vehicle
--- NOTE | 2024-09-24 10:10 | CM.DPC ---
DCP Continued: Reviewed EMR and team rounds for pt?s medical status. Per rounds, pt cleared for discharge with family and [place]. DCP entered room, introduced self and role. Met with pt, spouse and son. Per pt, they were not able to obtain a reservation for the 11:15a ferry but is hopeful for a preferential loading pass due to status after surgery. DCP completed Medical Preferential Loading form via [employer] website, provided printed copy for patient and notified that a copy should also be sent via email. Plan: Pt to discharge home with family assistance, no other needs identified. CM Team will continue to follow for coordination of discharge plans. GUILLERMO Zayas
--- NOTE | 2024-09-24 10:19 | CM.DANOTE ---
DCP Assessment Note: Pt is a 79yo female, resident of [place], is admitted for s/p L DELMI anterior. Pt lives in a house with her spouse, Raúl. Pt's Primary Care Provider is Dr. Loren Dougherty MD and insurance is [facility]. Reviewed chart and team rounds for pt's medical status and initial discharge needs. DCP met w/patient at bedside; introduced self and role. Present in the room is pt's son and spouse. Patient was found in chair, alert and oriented, cooperative with assessment. Pt confirmed living situation and good support in family. Pt expressed preference in returning home. PT/OT recommending home with assistance. See other DCP note re: preferential loading pass. Provided to patient. Plan: Anticipating home with family assistance when medically cleared, will utilize medical preferential loading pass for travel home. CM team will follow closely for coordination of discharge plans. GUILLERMO Zayas Discharge Planning/Care Management CM Discharge Assessment Start: 09/24/24 10:17 Freq: Status: Active Protocol: Document 09/24/24 10:18 MW (Rec: 09/24/24 10:19 MW [id number]) Discharge Planning Assessment Assigned Septic Tank Service Technician ALMA DELIA Morel DPOA/Assigned Designee Name Raúl, Spouse Contact Information [phone] Advance Directives? Yes Advance Directives on File No History Provided By Patient,Family Member,Medical Record Expected Length of Stay 1 Has Patient been admitted in last 30 No days? Prior Living Arrangements House Comment On [place] Household Members spouse Type of transporation used prior to Drives own vehicle admit Independent with ADL's Yes Is patient alert and oriented? Yes Caregiver for Another No DME Already Rented / Owned FWW / Walker Barriers to Discharge Yes Comment [place] Medical Preferential Loading Discharge Plan Home Referrals Initiated None needed Whiteboard Updated in Patient Room with Yes name and ext. # of Septic Tank Service Technician Review Status In Process Please Provide Date Initial DC 09/24/24 Assessment Was Performed Next Review Type Continued Stay Review
--- NOTE | 2024-09-24 11:57 | PC.NURSE ---
Pt feels ready to d/c to home. Tolerates diet w/out problems. Vds w/out diff. Tylenol and ibuprofen has been effective for pain. Pt doesn't want to use narc pain meds unless she has to. Seen by PA and d/c instructions given. Seen by PT and she is safe to go home. Reviewed discharge packet. Rx has been esent. Questions answered. Priority load given. D/c to home via auto with spouse.
== END 2024-09-24 11:15 | disposition home or self-care (01) ==
LOC: OR 05:58 → AC 05:59
PROVIDERS: PCP Family Medicine; Referring Provider Orthopaedic Surgery; Visit Provider Orthopaedic Surgery
PROC: (CPT 27130; principal; 2024-09-23 07:45)
DX: M16.12 Unilateral primary osteoarthritis, left hip (principal); M25.752 Osteophyte, left hip
CPT/HCPCS: 27130; 36415; 72170; 73502; 85014; 85018; 97161; 97166; 97530; 97535; C1776; A9270; C9290; J0171; J0690; J2405; J2704

== ENCOUNTER → 2025-09-19 13:50 | Outpatient (CLI) | payer MEDICARE, SELFPAY ==
[2024-09-23 11:19] VITALS: BMI 25.0
--- NOTE | 2025-09-19 13:51 | DI.RAD.S_ITS ---
PROCEDURE: XR DEXA AXIAL SKELETON INDICATIONS: screening COMPARISON: [facility], , XR DEXA AXIAL SKELETON, 02/26/2021, 14:46. FINDINGS: Lumbar Spine: Bone mineral density 1.015 g/cm2, T score -2.0, normal. Left Femoral Neck: Bone mineral density 0.713 g/cm2, T score -1.2, osteopenia. Left Hip: Bone mineral density 0.783 g/cm2, T score -1.3, osteopenia. Fracture Risk Calculation (when applicable): 10-year fracture risk of a major osteoporotic fracture 19% percent and of a hip fracture 9.7% percent. (T score greater or equal to -1.0 to: NORMAL) (T score from -1.1 to -2.4: OSTEOPENIA) (T score less than or equal to -2.5: OSTEOPOROSIS) IMPRESSION: Osteopenia. Follow-up guidelines as follows: Osteoporosis: Consider a repeat DEXA and Vertebral Fracture Assessment (VFA) exam in 2 years or sooner if medically necessary, to reassess this patient's status. Osteopenia: Consider a repeat DEXA in 2-3 years to reassess this patient's status, or if there is a new clinical indication. Normal: Consider a repeat DEXA in 5 years or sooner, or if there is a new clinical indication. All treatment decisions require clinical judgment and consideration of individual patient factors, including patient preferences, comorbidities, previous drug use, risk factors not captured in the FRAX model (e.g., frailty, falls, vitamin D deficiency, increased bone turnover, interval significant decline in bone density ) and possible under- or over-estimation of fracture risk by FRAX. In addition, the NOF Guide recommends that FDA-approved medical therapies be considered in postmenopausal women and men age >= 50 years with a: * Hip or vertebral (clinical or morphometric) fracture * T-score of <=-2.5 at the spine or hip * Ten-year fracture probability by FRAX of >= 3% for hip fracture or >=20% for major osteoporotic fracture. Dictated by: Angela Andres MD, PhD on 09/20/2025 at 9:21 Approved by: Angela Andres MD, PhD on 09/20/2025 at 9:24
== END ==
LOC: RAD 13:51
PROVIDERS: PCP Physician Assistant; Referring Provider Physician Assistant; Visit Provider Physician Assistant
DX: M85.89 Other specified disorders of bone density and structure, multiple sites (principal); Z78.0 Asymptomatic menopausal state
CPT/HCPCS: 77080